=== PATIENT | male | born 1980 | race Caucasian/White ===

== ENCOUNTER 2019-04-06 23:55 | Emergency (ER) | payer SELFPAY ==
[2019-04-07] MEDS ORDERED: CEPHALEXIN 500 MG CAPSULE PO ONE (00:40)
[2019-04-07] MEDS ORDERED: ONDANSETRON 4 MG TAB.RAPDIS PO ONE (00:40)
[2019-04-07] MEDS ORDERED: HYDROCODONE/ACETAMINOPHEN 5-325 MG TABLET PO ONE (00:40)
--- NOTE | 2019-04-07 00:42 | ER Document Report ---
ED Medical Screen (RME) - General Chief Complaint: Insect Bite Stated Complaint: POSSIBLE SPIDER BITE Time Seen by Provider: 04/07/19 00:32 Primary Care Provider: CARMELITA MARTIN [Primary Care Provider] - Follow up as needed Mode of Arrival: Wheelchair Information source: Patient Notes: Patient presents complaining of infected insect bite to right lower leg. Patient states area has been there for the past 3 days. Patient did go to an urgent care and they attempted to squeeze drainage from the wound and placed him on Bactrim. Patient has been taking T3 and Bactrim without any improvement of symptoms. Patient reports subjective fever with nausea and dizziness. Patient reports worsening despite use of antibiotics. I have greeted and performed a rapid initial assessment of this patient. A comprehensive ED assessment and evaluation of the patient, analysis of test results and completion of the medical decision making process will be conducted by additional ED providers. - Related Data Allergies/Adverse Reactions: No Known Allergies Allergy (Verified 04/07/19 00:15) Past Medical History - Immunizations Hx Diphtheria, Pertussis, Tetanus Vaccination: Yes Physical Exam - Vital signs Vitals: Temp Pulse Resp BP Pulse Ox 98.4 F 82 16 123/69 96 04/07/19 00:16 04/07/19 00:16 04/07/19 00:16 04/07/19 00:16 04/07/19 00:16 - General Notes: Abscess to the middle third of right lower leg with surrounding erythema Course - Vital Signs Vital signs: Temp Pulse Resp BP Pulse Ox 98.4 F 82 16 123/69 96 04/07/19 00:16 04/07/19 00:16 04/07/19 00:16 04/07/19 00:16 04/07/19 00:16 Doctor's Discharge - Discharge Referrals: CARMELITA MARTIN [Primary Care Provider] - Follow up as needed
[2019-04-07 02:05] LABS: ABSOLUTE BASOPHILS # (AUTO) 0.1 10^3/uL (0.0-0.2); ABSOLUTE EOSINOPHILS # (AUTO) 0.2 10^3/uL (0.0-0.6); ABSOLUTE LYMPHOCYTES (AUTO) 1.8 10^3/uL (0.5-4.7); ABSOLUTE MONOCYTES (AUTO) 0.7 10^3/uL (0.1-1.4); ABSOLUTE NEUT (AUTO) 7.1 10^3/uL (1.7-8.2); BASOPHILS % (AUTO) 0.7 % (0-2); HEMATOCRIT 40.5 % (37.9-51.0); HEMOGLOBIN 14.1 g/dL (13.5-17.0); LYMPHOCYTES % (AUTO) 18.3 % (13-45); MEAN CORPUSCULAR HEMOGLOBIN 30.3 pg (27.0-33.4); MEAN CORPUSCULAR HGB CONC 34.7 g/dL (32.0-36.0); MEAN CORPUSCULAR VOLUME 87 fl (80-97); MONOCYTES % (AUTO) 6.9 % (3-13); PLATELET COUNT 313 10^3/uL (150-450); RED BLOOD COUNT 4.64 10^6/uL (4.35-5.55); RED CELL DISTRIBUTION WIDTH 12.1 % (11.5-14.0); SEGMENTED NEUTROPHILS % (AUTO) 72.1 % (42-78); TOTAL CELLS COUNTED % (AUTO) 100 %; WHITE BLOOD COUNT 9.9 10^3/uL (4.0-10.5)
[2019-04-07 02:32] LABS: ANION GAP 11 (5-19); BLOOD UREA NITROGEN 12 mg/dL (7-20); CALCIUM 9.3 mg/dL (8.4-10.2); CARBON DIOXIDE 26 mmol/L (22-30); CHLORIDE 99 mmol/L (98-107); GLUCOSE 113 mg/dL (75-110)
--- NOTE | 2019-04-07 03:31 | RADIOLOGY REPORT (SQ) ---
EXAM DESCRIPTION: US EXTREMITY MUSCULOSKELETAL LIMITED COMPLETED DATE/TME: 04/07/2019 00:39 CLINICAL HISTORY: 38 years, Male, abscess RLE COMPARISON: None. TECHNIQUE: Transverse and longitudinal sonographic images in the region of the clinical/palpable abnormality of the right lower extremity LIMITATIONS: None. FINDINGS: Diffuse subcutaneous edema likely reflecting cellulitis. There is a more focal 1.1 x 1.0 x 0.5 cm mixed echogenicity area in the superficial soft tissues which could reflect small abscess. IMPRESSION: Diffuse cellulitis in the region scanned with possible tiny abscess as above copyright 2010 [id number]- All Rights Reserved
[2019-04-07] MEDS ORDERED: HYDROCODONE/ACETAMINOPHEN 5-325 MG (6 TAB/ER DISP) PO PRN (04:22)
--- NOTE | 2019-04-07 04:23 | ER Document Report ---
ED General - General Chief Complaint: Insect Bite Stated Complaint: POSSIBLE SPIDER BITE Time Seen by Provider: 04/07/19 00:32 Primary Care Provider: CARMELITA MARTIN [NO LOCAL MD] - Follow up as needed Mode of Arrival: Wheelchair Notes: 38-year-old male presents emergency department for infection to his right leg. Patient states that he was outside working and then developed an area of redness and swelling to the lateral aspect of his left calf. Patient is concerned that he may have been bitten by a spider. Patient does not recall seeing any snakes, states that his significant other thought she may have seen some myers on his leg. This occurred 3 to 4 days ago, has since developed an area of redness and swelling with some purulent discharge. Patient was seen within the past 2 days at [place] [id number] of the [facility] where he was prescribed Bactrim but he states it is not improving. Patient admits sweats and chills, has not checked his temperature. Denies history of MRSA or diabetes. - Related Data Allergies/Adverse Reactions: No Known Allergies Allergy (Verified 04/07/19 00:15) Past Medical History - General Information source: Patient - Social History Smoking Status: Current Every Day Smoker Frequency of alcohol use: Occasional Drug Abuse: None Family History: Reviewed & Not Pertinent - Immunizations Hx Diphtheria, Pertussis, Tetanus Vaccination: Yes Review of Systems - Review of Systems Constitutional: See HPI, Fever EENT: No symptoms reported Musculoskeletal: See HPI Skin: See HPI Neurological/Psychological: No symptoms reported -: Yes All other systems reviewed and negative Physical Exam - Vital signs Vitals: Temp Pulse Resp BP Pulse Ox 98.4 F 82 16 123/69 96 04/07/19 00:16 04/07/19 00:16 04/07/19 00:16 04/07/19 00:16 04/07/19 00:16 Interpretation: Normal - Notes Notes: GENERAL: Alert, interacts well. No acute distress. HEAD: Normocephalic, atraumatic EYES: Pupils equal, round and reactive to light, extraocular movements intact. ENT: Oral mucosa moist, tongue midline. NECK: Full range of motion, trachea midline. LUNGS: no respiratory distress. ABDOMEN: nondistended EXTREMITIES: Moves all 4 extremities spontaneously, no edema, dorsalis pedis pulses 2/4 bilaterally. No cyanosis. NEUROLOGICAL: Alert and oriented x3, normal speech. PSYCH: Normal mood, normal affect. SKIN: Warm, Dry, 12 cm area of erythema noted at the lateral aspect of the right calf, central area of eschar approximately 1 cm with mild fluctuance beneath it. No sloughing, no blistering. When opened I am able to express a small amount of purulent drainage. No lymphangitic streaking. Course - Re-evaluation Re-evalutation: 04/07/19 04:21 CBC unremarkable, BMP grossly unremarkable, incision and drainage was performed, wound culture was sent, patient will be started on Keflex and instructed to continue using the Bactrim. Epsom salts soaks. Discharged home. - Vital Signs Vital signs: Temp Pulse Resp BP Pulse Ox 98.4 F 82 16 123/69 96 04/07/19 00:16 04/07/19 00:16 04/07/19 00:16 04/07/19 00:16 04/07/19 00:16 - Laboratory Result Diagrams: 04/07/19 01:30 04/07/19 01:30 Laboratory results interpreted by me: 04/07/19 01:30 Sodium 136.4 L Glucose 113 H Procedures - Incision and Drainage Right calf Type: Simple, Single Blade size: 11 I&D procedure: Other - Alcohol wipe Incision Method: Incision made by scalpel Amount/type of drainage: 0.5 mL purulent drainage. Notes: 04/07/19 04:21 Explored with Q-tip, loculations broken up. Discharge - Discharge Clinical Impression: Abscess of right leg excluding foot Condition: Stable Disposition: HOME, SELF-CARE Additional Instructions: Post Incision and Drainage You have had an incision made to allow drainage of an abscess. The incision must remain open so that pus and debris can drain from the wound. Keep a bulky dressing over the area. Replace it if it becomes saturated with blood or pus. You may shower and cleanse the area with gentle soap and warm water two or three times a day. Local warmth may be soothing, and may promote faster healing. Return if you develop high fever or chills, or if you note spreading redness, increasing swelling, or increasing tenderness. Take your antibiotics as directed until they are gone. That means both the sulfa drug given to you by Naheed and the Keflex that was given here. Epsom Salt Soaks Soak the wound area in a container of warm epsom salt water. If you can't get the wound area into a bucket or ruvalcaba, use a folded towel soaked in the epsom salt solution and apply to the area. Use clean hot tap water (about the temperature of a very warm bath), mixing in about one (1) teaspoon for every pint of water. Two gallon --> 16 teaspoons Epsom Salts One gallon --> 8 teaspoons Epsom Salts Two quarts --> 4 teaspoons Epsom Salts One quart --> 2 teaspoons Epsom Salts Soak the wound for about 20 minutes while gently moving it around in the water. Repeat this four (4) times a day. Prescriptions: Cephalexin Monohydrate [Keflex 500 mg Capsule] 500 mg PO Q6H 5 Days capsule Referrals: AN MADRID MD [ACTIVE STAFF] - Follow up as needed
[2019-04-07 04:29] VITALS: BP 130/83
== END 2019-04-07 04:47 | disposition home or self-care (01) ==
LOC: ER 23:55
PROC: 0H9KXZZ Drainage of Right Lower Leg Skin, External Approach (ICD-10-PCS; principal; 2019-04-06)
DX: L02.415 Cutaneous abscess of right lower limb (principal); S80.861A Insect bite (nonvenomous), right lower leg, initial encounter; R50.9 Fever, unspecified; W57.XXXA Bitten or stung by nonvenomous insect and other nonvenomous arthropods, initial encounter; F17.200 Nicotine dependence, unspecified, uncomplicated
CPT/HCPCS: 99284; 36415; 87070; 87205; 85025; 87075; 87077; 80048; 87186; 76882; 10060; S0119

== ENCOUNTER 2020-03-04 00:12 | Emergency (ER) | payer BC ==
[2020-03-04] MEDS ORDERED: ASPIRIN 81 MG TABLET, CHEWABLE PO ONE (00:33)
--- NOTE | 2020-03-04 00:35 | ER Document Report ---
ED Medical Screen (RME) - General Stated Complaint: CHEST PAIN Time Seen by Provider: 03/04/20 00:33 Notes: HPI: 39-year-old male who is otherwise healthy presenting for right-sided chest discomfort that began earlier today with some shortness of breath. No radiation into the neck back or shoulders. Patient states that it feels like a soreness as if someone had struck him in the chest several times on the right. States it does not change with position or movement. 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 States t here is been some level of the discomfort throughout the day today with varying intensity. No significant family history of coronary artery disease. Patient does not smoke PHYSICAL EXAMINATION: EKG that was done in initial triage process not could capture with some artifact. We will have nursing redo EKG. Lung sounds are clear to auscultation regular rate and rhythm. I have greeted and performed a rapid initial assessment of this patient. A comprehensive ED assessment and evaluation of the patient, analysis of test results and completion of medical decision making process will be conducted by an additional ED providers. - Related Data Allergies/Adverse Reactions: No Known Allergies Allergy (Verified 04/07/19 00:15) Past Medical History Renal/ Medical History: Denies: Hx Peritoneal Dialysis - Immunizations Hx Diphtheria, Pertussis, Tetanus Vaccination: Yes Physical Exam - Vital signs Vitals: Temp Pulse Resp BP Pulse Ox 98.5 F 72 16 146/80 H 96 03/04/20 00:29 03/04/20 00:03/04/20 00:03/04/20 00:29 03/04/20 00:29 Course - Vital Signs Vital signs: Temp Pulse Resp BP Pulse Ox 98.5 F 72 16 146/80 H 96 03/04/20 00:29 03/04/20 00:29 03/04/20 00:03/04/20 00:03/04/20 00:29
--- NOTE | 2020-03-04 01:07 | EKG REPORT ---
SEVERITY:- ABNORMAL ECG - SINUS RHYTHM MULTIFORM VENTRICULAR PREMATURE COMPLEXES ABERRANT COMPLEX, POSSIBLY SUPRAVENTRICULAR NONSPECIFIC T ABNORMALITIES, INFERIOR LEADS BORDERLINE PROLONGED QT INTERVAL : Confirmed by: Annabelle Land MD 04-Mar-2020 01:07:08
[2020-03-04 01:28] LABS: ABSOLUTE BASOPHILS # (AUTO) 0.1 10^3/uL (0.0-0.2); ABSOLUTE EOSINOPHILS # (AUTO) 0.2 10^3/uL (0.0-0.6); ABSOLUTE LYMPHOCYTES (AUTO) 2.2 10^3/uL (0.5-4.7); ABSOLUTE MONOCYTES (AUTO) 0.8 10^3/uL (0.1-1.4); ABSOLUTE NEUT (AUTO) 4.7 10^3/uL (1.7-8.2); BASOPHILS % (AUTO) 0.8 % (0-2); EOSINOPHILS % (AUTO) 2.3 % (0-6); HEMATOCRIT 40.9 % (37.9-51.0); HEMOGLOBIN 13.9 g/dL (13.5-17.0); LYMPHOCYTES % (AUTO) 28.1 % (13-45); MEAN CORPUSCULAR HEMOGLOBIN 30.1 pg (27.0-33.4); MEAN CORPUSCULAR VOLUME 89 fl (80-97); MONOCYTES % (AUTO) 9.9 % (3-13); PLATELET COUNT 273 10^3/uL (150-450); RED BLOOD COUNT 4.62 10^6/uL (4.35-5.55); RED CELL DISTRIBUTION WIDTH 12.1 % (11.5-14.0); SEGMENTED NEUTROPHILS % (AUTO) 58.9 % (42-78); TOTAL CELLS COUNTED % (AUTO) 100 %; WHITE BLOOD COUNT 7.9 10^3/uL (4.0-10.5)
--- NOTE | 2020-03-04 01:39 | RADIOLOGY REPORT (SQ) ---
CLINICAL INDICATION: chest pain. TECHNIQUE: PA and lateral views were obtained of the chest COMPARISON: None. FINDINGS: The cardiomediastinal silhouette is normal. The lungs are grossly clear. No evidence of effusion or pneumothorax. Visualized bones are unremarkable. . IMPRESSION: No evidence of active intrathoracic disease .
[2020-03-04 01:52] LABS: ALBUMIN 4.1 g/dL (3.5-5.0); ALKALINE PHOSPHATASE 57 U/L (38-126); ANION GAP 5 (5-19); ASPARTATE AMINO TRANSFERASE 31 U/L (17-59); BILIRUBIN,TOTAL 0.4 mg/dL (0.2-1.3); BLOOD UREA NITROGEN 14 mg/dL (7-20); CALCIUM 8.8 mg/dL (8.4-10.2); CARBON DIOXIDE 28 mmol/L (22-30); CHLORIDE 105 mmol/L (98-107); CREATINE KINASE 572 U/L (55-170); GLUCOSE 91 mg/dL (75-110); POTASSIUM 4.2 mmol/L (3.6-5.0)
[2020-03-04 02:01] LABS: CREATINE KINASE MB 4.12 ng/mL (<4.55)
[2020-03-04 02:03] LABS: TROPONIN I < 0.012 ng/mL
[2020-03-04] MEDS ORDERED: ASPIRIN 81 MG TABLET, CHEWABLE ONE (03:26)
--- NOTE | 2020-03-04 05:01 | ER Document Report ---
ED General - General Chief Complaint: Chest Pain Stated Complaint: CHEST PAIN Time Seen by Provider: 03/04/20 00:33 Notes: Patient is a 39-year-old male that comes emergency department for chief complaint of almost 2 days now of right-sided chest pain. Pain is significantly worse with movement, patient states it feels sore and tight as if he got struck over the chest. 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 Patient denies difficulty breathing, passing out, dizziness, shortness of breath, fever, trauma. He denies any personal or family history of [place] or cardiac disease. He denies smoking, recreational drugs, or frequent alcohol. He takes no daily medications. He states that he could not sleep well last night because of the discomfort. - Related Data Allergies/Adverse Reactions: No Known Allergies Allergy (Verified 04/07/19 00:15) Past Medical History - General Information source: Patient - Social History Smoking Status: Never Smoker Frequency of alcohol use: None Drug Abuse: None Lives with: Family Family History: Reviewed & Not Pertinent Patient has homicidal ideation: No Renal/ Medical History: Denies: Hx Peritoneal Dialysis Surgical Hx: Negative - Immunizations Hx Diphtheria, Pertussis, Tetanus Vaccination: Yes Review of Systems - Review of Systems Constitutional: No symptoms reported EENT: No symptoms reported Cardiovascular: See HPI Respiratory: No symptoms reported Gastrointestinal: No symptoms reported Genitourinary: No symptoms reported Male Genitourinary: No symptoms reported Musculoskeletal: See HPI Skin: No symptoms reported Hematologic/Lymphatic: No symptoms reported Neurological/Psychological: No symptoms reported Physical Exam - Vital signs Vitals: Temp Pulse Resp BP Pulse Ox 98.5 F 72 16 146/80 H 96 03/04/20 00:29 03/04/20 00:29 03/04/20 00:29 03/04/20 00:03/04/20 00:29 - Notes Notes: GENERAL: Alert, interacts well. No acute distress. HEAD: Normocephalic, atraumatic. EYES: Pupils equal, round, and reactive to light. Extraocular movements intact. ENT: Oral mucosa moist, tongue midline. Oropharynx unremarkable. Airway patent. NECK: Full range of motion. Supple. Trachea midline. No lymphadenopathy. LUNGS: Clear to auscultation bilaterally, no wheezes, rales, or rhonchi. No respiratory distress. Tenderness over the right pectoral muscle with tight muscle fibers. Pain is significantly worse with range of motion of the right arm. Pain is reproducible. No severe tenderness, swelling, erythema, or other concerning findings noted. HEART: Regular rate and rhythm. No murmur ABDOMEN: Soft, non-tender. Non-distended. EXTREMITIES: Moves all 4 extremities spontaneously. No edema, normal radial and dorsalis pedis pulses bilaterally. No cyanosis. BACK: no cervical, thoracic, lumbar midline tenderness. No saddle anesthesia, normal distal neurovascular exam. Moves all extremities in full range of motion. NEUROLOGICAL: Alert and oriented x3. Normal speech. Cranial nerves II through XII grossly intact. Strength 5/5 in all extremities. PSYCH: Normal affect, normal mood. SKIN: Very tanned. Otherwise unremarkable. Course - Re-evaluation Re-evalutation: Patient with very musculoskeletal reported history and physical exam. Based on his evaluation and negative work-up I strongly feel this is related to patient's right chest wall/pectoral muscle. Very low suspicion of ACS. 2 negative tropon ins. Discussed treatment recommendations, follow-up, and return precautions. Patient states understanding and agreement with plan. Stable and well-appearing at time of discharge. - Vital Signs Vital signs: Temp Pulse Resp BP Pulse Ox 98.1 F 62 16 130/76 H 99 03/04/20 06:00 03/04/20 06:00 03/04/20 06:00 03/04/20 06:00 03/04/20 06:00 - Laboratory Result Diagrams: 03/04/20 01:12 03/04/20 01:12 Laboratory results interpreted by me: 03/04/20 01:12 Creatine Kinase 572 H - EKG Interpretation by Me Additional EKG results interpreted by me: Initial EKG difficult to interpret because of artifact. This was repeated. Repeat EKG shows sinus rhythm at a rate of 68, QTc of 413, normal axis, no T wave inversions or ST segment changes in consecutive leads. Discharge - Discharge Clinical Impression: Right-sided chest pain, Chest wall pain Condition: Stable Disposition: HOME, SELF-CARE Additional Instructions: Your work-up does not show any concerning findings. Your evaluation is consistent with strain, injury, and muscle spasm of the right sided pectoral muscle in your chest wall. I recommend heat over the area several times a day, gentle massage, drink plenty fluids, take the anti-inflammatory as prescribed, take the muscle relaxer as prescribed especially at night to help you sleep. Symptoms should gradually resolve. Follow with primary care. Return if you worsen including severe worsening pain, difficulty breathing, passing out, vomiting, or any other concerning symptoms. Prescriptions: Cyclobenzaprine HCl 1 - 2 tab PO Q8H PRN #20 tablet PRN Reason: Naproxen 500 mg PO BID PRN #20 tablet PRN Reason: Forms: Return to Work
[2020-03-04 06:19] VITALS: BP 130/76
--- NOTE | 2020-03-04 10:44 | EKG REPORT ---
SEVERITY:- NORMAL ECG - SINUS RHYTHM 68. : Confirmed by: Kobe Grover MD 04-Mar-2020 10:43:48
== END 2020-03-04 06:05 | disposition home or self-care (01) ==
LOC: ER 00:12
DX: R07.9 Chest pain, unspecified (principal); R07.89 Other chest pain
CPT/HCPCS: 36415; 71046; 80053; 82550; 82553; 84484; 85025; 93005; 93010; 99284

== ENCOUNTER 2020-05-05 05:45 | Emergency (ER) | payer BC ==
[2020-05-05] MEDS ORDERED: NORMAL SALINE 1000 ML 1,000 ML IV ONE (06:32)
[2020-05-05] MEDS ORDERED: MORPHINE SULFATE 10 MG/ML INJ IV ONE (06:34)
[2020-05-05] MEDS ORDERED: ONDANSETRON HCL INJ/PF 4 MG/2 ML SDV IV ONE (06:35)
[2020-05-05 06:53] LABS: ABSOLUTE EOSINOPHILS # (AUTO) 0.1 10^3/uL (0.0-0.6); ABSOLUTE LYMPHOCYTES (AUTO) 1.5 10^3/uL (0.5-4.7); ABSOLUTE MONOCYTES (AUTO) 1.1 10^3/uL (0.1-1.4); ABSOLUTE NEUT (AUTO) 9.3 10^3/uL (1.7-8.2); BASOPHILS % (AUTO) 0.4 % (0-2); HEMOGLOBIN 13.4 g/dL (13.5-17.0); LYMPHOCYTES % (AUTO) 12.4 % (13-45); MEAN CORPUSCULAR HGB CONC 35.3 g/dL (32.0-36.0); MEAN CORPUSCULAR VOLUME 88 fl (80-97); MONOCYTES % (AUTO) 9.3 % (3-13); PLATELET COUNT 253 10^3/uL (150-450); RED BLOOD COUNT 4.33 10^6/uL (4.35-5.55); RED CELL DISTRIBUTION WIDTH 12.5 % (11.5-14.0); SEGMENTED NEUTROPHILS % (AUTO) 76.9 % (42-78); TOTAL CELLS COUNTED % (AUTO) 100 %; WHITE BLOOD COUNT 12.1 10^3/uL (4.0-10.5)
--- NOTE | 2020-05-05 07:10 | ER Document Report ---
Entered by FELIPE MENDEZ SCRIBE 05/05/20 0623 Acting as scribe for:LAURA PORTILLO MD ED Extremity Problem, Upper - General Chief Complaint: Elbow Injury Stated Complaint: SWOLLEN ELBOW Mode of Arrival: Ambulatory Information source: Patient Notes: This 39 year old male patient presents to the ED today with complaints of sudden onset pain and swelling to his left elbow that started x3 days ago. Patient states that his symptoms started while at work at [employer]; he also does lawn care. Denies injury or insect bite. He states that he has been taking Ibuprofen and Aleve without resolve. He denies any urinary symptoms, rash, or history of gout or arthritis. - Related Data Allergies/Adverse Reactions: No Known Allergies Allergy (Verified 04/07/19 00:15) Past Medical History - General Information source: Patient - Social History Smoking Status: Never Smoker Cigarette use (# per day): No Chew tobacco use (# tins/day): No Smoking Education Provided: No Frequency of alcohol use: None Drug Abuse: None Lives with: Family Family History: Reviewed & Not Pertinent Patient has suicidal ideation: No Patient has homicidal ideation: No Pulmonary Medical History: Reports: Hx Asthma - Immunizations Hx Diphtheria, Pertussis, Tetanus Vaccination: Yes Review of Systems - Review of Systems Constitutional: No symptoms reported EENT: No symptoms reported Cardiovascular: No symptoms reported Respiratory: No symptoms reported Gastrointestinal: No symptoms reported Genitourinary: See HPI. denies: Dysuria, Frequency, Hematuria, Pain Musculoskeletal: See HPI, Joint pain, Joint swelling Skin: See HPI. denies: Rash Hematologic/Lymphatic: No symptoms reported Neurological/Psychological: No symptoms reported -: Yes All other systems reviewed and negative Physical Exam - Vital signs Vitals: Temp Pulse Resp BP Pulse Ox 98.2 F 85 20 145/86 H 98 05/05/20 05:52 05/05/20 05:52 05/05/20 05:52 05/05/20 05:52 05/05/20 05:52 - General General appearance: Alert In distress: None - HEENT Head: Normocephalic, Atraumatic Eyes: Normal Pupils: PERRL - Respiratory Respiratory status: No respiratory distress Chest status: Nontender Breath sounds: Normal Chest palpation: Normal - Cardiovascular Rhythm: Regular Heart sounds: Normal auscultation, S1 appreciated, S2 appreciated Murmur: No Friction rub: No Gallop: None auscultated - Abdominal Inspection: Normal Distension: No distension Bowel sounds: Normal Tenderness: Nontender - Abdomen soft Organomegaly: No organomegaly - Back Back: Normal, Nontender - Extremities General lower extremity: Normal inspection Elbow: Limited ROM. No: Normal - Left elbow is swollen, warm to the touch, and red in color; soft tissue swelling noted to posterior olecranon area - Neurological Neuro grossly intact: Yes Orientation: AAOx4 [place] Coma Scale Eye Opening: Spontaneous [place] Coma Scale Verbal: Oriented [place] Coma Scale Motor: Obeys Commands [place] Coma Scale Total: 15 - Psychological Associated symptoms: Normal affect, Normal mood - Skin Skin Temperature: Warm Skin Moisture: Dry Skin Color: Normal Course - Re-evaluation Re-evalutation: 05/05/20 06:40 DDx: gout, olecranon bursitis, arthritis 05/05/20 11:10 Patient reports that he is able to move his elbow now less painful status post aspiration of left olecranon bursa sac. - Vital Signs Vital signs: Temp Pulse Resp BP Pulse Ox 98.2 F 85 20 132/90 H 96 05/05/20 10:00 05/05/20 05:52 05/05/20 05:52 05/05/20 10:00 05/05/20 10:01 05/05/20 11:11 Vital signs stable - Laboratory Result Diagrams: 05/05/20 06:30 05/05/20 06:30 Laboratory results interpreted by me: 05/05/20 06:30 WBC 12.1 H RBC 4.33 L Hgb 13.4 L Lymph % (Auto) 12.4 L Absolute Neuts (auto) 9.3 H Elevated white blood cell count 12.1 otherwise no acute process. - Diagnostic Test Radiology reviewed: Image reviewed, Reports reviewed Radiology results interpreted by me: 05/05/20 07:16 0.7 x-rays of left elbow show soft tissue swelling in the olecranon posterior elbow region and also noted olecranon spur. There is a floating dense ossicle o ff of the tip of the spur it looks old as opposed to any found a new fracture of the tip of the olecranon spur. No other acute process noted. Pending official radiologist reading of x-ray. Procedures - Incision and Drainage Left Elbow Time completed: 09:50 Type: Simple Anesthetic type: 1% Lidocaine I&D procedure: Shurclens applied, Sterile dressing applied Incision Method: Incision made with needle - 19 gauge Amount/type of drainage: 5 ml serosanguineous drainage Notes: 05/05/20 10:17 Patient tolerated the procedure well. No complications. Dressing was applied. Discharge - Discharge Clinical Impression: Olecranon bursitis of left elbow Condition: Stable Disposition: HOME, SELF-CARE Prescriptions: Amoxicillin/Potassium Clav [Augmentin 875-125 Tablet] 1 tab PO BID #20 tab Ibuprofen [Ibu] 800 mg PO TID PRN 7 Days #21 tablet PRN Reason: prn pain/swelling/fever Forms: Return to Work Referrals: JN TERRY JR, DO [ACTIVE PROVISIONAL STAFF] - Follow up in 3-5 days I personally performed the services described in the documentation, reviewed and edited the documentation which was dictated to the scribe in my presence, and it accurately records my words and actions.
[2020-05-05 07:21] LABS: ALBUMIN 3.8 g/dL (3.5-5.0); ALKALINE PHOSPHATASE 58 U/L (38-126); ANION GAP 7 (5-19); ASPARTATE AMINO TRANSFERASE 20 U/L (17-59); BILIRUBIN,DIRECT 0.2 mg/dL (0.0-0.4); BILIRUBIN,TOTAL 0.9 mg/dL (0.2-1.3); BLOOD UREA NITROGEN 10 mg/dL (7-20); CALCIUM 8.6 mg/dL (8.4-10.2); CARBON DIOXIDE 28 mmol/L (22-30); CHLORIDE 103 mmol/L (98-107); GLUCOSE 97 mg/dL (75-110); POTASSIUM 3.8 mmol/L (3.6-5.0); TOTAL PROTEIN 6.4 g/dL (6.3-8.2)
[2020-05-05 07:22] LABS: ALCOHOL < 10 mg/dL (NONE DETECTED)
--- NOTE | 2020-05-05 07:39 | RADIOLOGY REPORT (SQ) ---
EXAM: X-ray elbow three views, left CLINICAL DATA: Left elbow pain and swelling TECHNICAL DATA: Four x-ray views of the left elbow were performed on 05/05/2020 6:54 AM. COMPARISONS: None FINDINGS: There is no evidence of fracture or dislocation. There is no significant arthritis or degenerative change. No focal lytic or sclerotic bone lesions are seen. There is a small olecranon spur and there is soft tissue swelling surrounding the olecranon process. There is no definite elevation of the anterior humeral fat pad. Bone mineralization is normal. IMPRESSION: 1. No evidence of acute osseous injury involving the left elbow. 2. Olecranon spur with surrounding soft tissue swelling possibly reflecting olecranon bursitis.
[2020-05-05] MEDS ORDERED: LIDOCAINE 1% INJ-PF (10 MG/ML) 30 ML SDV INJ ONE (08:47)
[2020-05-05] MEDS ORDERED: CEFEPIME 2 GM/D5W RTU 2 GM/50 ML RTUPB IV ONE (09:51)
[2020-05-05] MEDS ORDERED: KETOROLAC TROMETHAMINE INJ/PF 30 MG/1 ML SDV IV ONE (09:52)
[2020-05-05 10:55] VITALS: BP 132/90
== END 2020-05-05 11:25 | disposition home or self-care (01) ==
LOC: ER 05:45
PROC: 0M940ZZ Drainage of Left Elbow Bursa and Ligament, Open Approach (ICD-10-PCS; principal; 2020-05-05)
DX: M70.22 Olecranon bursitis, left elbow (principal); M25.522 Pain in left elbow; M79.89 Other specified soft tissue disorders; J45.909 Unspecified asthma, uncomplicated
CPT/HCPCS: 99284; 96361; 96375; 96365; 36415; 87040; 87070 ×2; 87205; 80307; 84550; 85025; 85652; 87075; 87077; 80053; 87186; 73080; 23931; J3490; J1885; J2270; J2405; J7030; J0692